=== PATIENT | male | born 1995 | race African-American/Black ===

== ENCOUNTER 2016-11-22 16:23 | Emergency (ER) | payer OTHER ==
[~2016-11-22] VITALS: Ht 167.6 cm; Wt 145.1 kg
== END 2016-11-22 16:49 | disposition home or self-care (01) ==
LOC: CFTX 16:23 → CED 16:23 → CFTX 16:47
DX: H65.92 Unspecified nonsuppurative otitis media, left ear (principal); F17.210 Nicotine dependence, cigarettes, uncomplicated
CPT/HCPCS: 99282